=== PATIENT | female | born 1955 | race Caucasian/White ===

== ENCOUNTER 2018-09-04 00:47 | Observation (INO) ==
[2018-09-04] MEDS ORDERED: *HR* Heparin 5,000 UNIT/ML VIAL IVP PRN ×7 (03:07→14:27)
[2018-09-04] MEDS ORDERED: *HR* Morphine 2 MG/ML SYRINGE IVP PRN (03:07)
[2018-09-04] MEDS ORDERED: Acetaminophen 325 MG TABLET PO PRN (03:07)
[2018-09-04] MEDS ORDERED: traMADol 50 MG TABLET PO PRN (03:07)
[2018-09-04] MEDS ORDERED: Naloxone 0.4 MG/ML INJ IVP PRN (03:07)
[2018-09-04] MEDS ORDERED: Nitroglycerin 25 MG/250 ML INFUS..BTL IVC SCH (03:15)
[2018-09-04] MEDS ORDERED: 0.9 % Sodium Chloride 1,000 ML IVC SCH (03:15)
[2018-09-04] MEDS ORDERED: [UNRECOGNIZED DRUG - OTHER] MC SCH (03:30)
--- NOTE | 2018-09-04 04:02 | Internal Med History&Physical ---
Date of Encounter: 09/04/18 Time of Encounter: 03:00 Internal Medicine - H&P: HPI Chief complaint: chest pain Admitted From: Emergency Dept Plans for Post Hospital Care: Home History of present illness: Ms. Dumas is a 62 year old female who presents in transfer from [facility] ER with complaints of chest pain. She presented there with elevated blood pressure, chest pain, and shortness of breath. Her chest pain was 8 out of 10 despite sublingual NTG 2. She was given his morphine and IV nitroglycerin with essential resolution of her chest pain. D-dimer was elevated. Initial troponin and EKG were negative. I was then contacted by [facility] attending requesting transfer to [facility]. There was discussion about possibly proceeding with CT angiogram of the chest to rule out PE. Given her known coronary artery disease, elevated d-dimer, clinical suspicion for PE, and prior history of UT, I recommended empiric treatment with heparin drip and nitroglycerin drip and then transfer to [facility]. Upon arrival to [facility], I saw patient on the floor. She is now chest pain-free. Blood pressure has improved. She is no longer short of breath. She does have known coronary artery disease and last had a PCI and stent about 1 year ago. Pain was a little different than her prior UT. She does have a history of breast cancer and takes tamoxifen, both of which increased my concern for possible thromboembolism. Patient does need imaging for possible PE. However, her kidney function was impaired and decision was made to hold off CT scan imaging at [facility] as we discussed. I am going to gingerly hydrate her and repeat her chemistries here. If her kidney function is stable, we will image with CT angiogram. If not, we will proceed with VQ imaging and BLE Dopplers. Nonetheless, there is a higher than normal clinical index of suspicion of PE given her history of breast cancer and tamoxifen use. She denies any prolonged travel recently. She has never had any blood clot before. Family history is negative for clot. Regarding her cardiac risk factors, she has known coronary artery disease, has been insulin-dependent diabetic for 60 years, and has a family history of heart disease. Therefore, we will continue heparin drip empirically for both coronary disease and possible PE now. She denies any calf pain or tenderness. She denies any lower extremity asymmetrical edema. She denies any fevers, cough, vomiting, or diarrhea. Past Med Surg Social Fam HX - Past Medical History Attestation: Yes The following information was validated with the patient. Source: patient, old records reviewed Medical history: arthritis, cancer (breast), diabetes, hyperlipidemia, hypertension, thyroid disease Additional medical history: charcot foot syndrome Psychiatric history: no psych history - Past Surgical History Surgical History: angioplasty/stent, breast surgery, hysterectomy Additional surgical history: bilateral foot surgery - Social History Smoking Status: Never smoker Smokeless Tobacco Status: No Alcohol use: occasionally Drug use: none Current living situation: Home, With Family Activity Level: Independent ambulation Recent Out of Country Travel Within the Last 8 Weeks: No - Family History Mother Living Status: Hx Family Cardiac Disorders: Yes Father Living Status: Hx Family Cardiac Disorders: Yes Internal Medicine - H&P: Meds Furosemide [Lasix] 40 mg PO DAILY 07/28/16 [History] Gabapentin [Gralise] 600 mg PO TID 07/28/16 [History] Infusion Set-Insulin Pump Body [Snap Insulin Pump-Infusion Set] 1 each MC CONT 07/28/16 [History] LORazepam [Ativan] 0.5 mg PO TID PRN 07/28/16 [History] Losartan [Cozaar] 25 mg PO DAILY 07/28/16 [History] Metoprolol XL (24 HR) Succ [Toprol XL] 25 mg PO DAILY 07/28/16 [History] Ropinirole HCl [Requip] 0.5 mg PO HS 07/28/16 [History] Temazepam [Restoril] 15 mg PO HS 07/28/16 [History] 3 Allergy/AdvReac Type Severity Reaction Status Date / Time sulfamethoxazole AdvReac See Verified 07/28/16 11:38 [From Bactrim] Comments trimethoprim [From Bactrim] AdvReac See Verified 07/28/16 11:38 Comments - Constitutional Constitutional: no chills, no fever(s) - EENT Eyes: no blurry vision, no change in vision Ears: no ear pain, no tinnitus Nose, mouth and throat: no nasal congestion, no sinus pressure, no sore throat - Cardiovascular Cardiovascular ROS IM: chest pain, dyspnea, dyspnea on exertion, palpitations, no lightheadedness, no paroxysmal nocturnal dyspnea, no syncope - Respiratory Respiratory: dyspnea, no cough, no hemoptysis, no chest congestion, no excessive phlegm production, no change in phlegm color - Gastrointestinal Gastrointestinal: no abdominal pain, no diarrhea, no hematemesis, no hematochezia, no melena, no nausea, no vomiting - Genitourinary Genitourinary: no dysuria, no flank pain, no hematuria - Musculoskeletal Musculoskeletal ROS IM: no arthralgias, no back pain - Integumentary Integumentary IM: no rash, no jaundice - Neurological Neurological ROS: no dizziness, no focal weakness, no frequent falls, no headache(s) - Psychiatric Psychiatric: no anxiety, no depression - Endocrine Endocrine IM: no cold intolerance, no heat intolerance, no polydipsia, no polyphagia, no polyuria - Allergic/Immunologic Allergic/Immunologic: no wheezing, no GI upset with certain foods - Constitutional Vitals: Temp Pulse Resp BP Pulse Ox 97.5 F L 71 16 135/86 96 09/04/18 02:42 09/04/18 02:42 09/04/18 02:42 09/04/18 02:42 09/04/18 02:42 General appearance: Present: cooperative, A&O X 3, no acute distress, answers questions appropriately Exam: see below - Head Head exam: Present: atraumatic, normal inspection - Eye Eye exam: Present: EOMI, PERRL. Absent: scleral icterus Pupils: Present: normal accommodation - ENT ENT exam: Present: mucous membranes dry, normal exam, normal oropharynx - Neck Neck exam general surgery: Present: full ROM, supple. Absent: tenderness, nuchal rigidity, thyromegaly - Respiratory Respiratory exam: Present: CTAB. Absent: chest wall tenderness, rales, rhonchi , wheezes - Cardiovascular Cardiovascular exam: Present: RRR, +S1, +S2. Absent: diastolic murmur, systolic murmur - GI/Abdominal GI/Abdominal exam: Present: normal bowel sounds, soft. Absent: hepatomegaly, mass, splenomegaly, tenderness - Extremities Exam Extremities exam: Present: full ROM, normal capillary refill, warm, radial pulses palpable and symmetrical. Absent: calf tenderness, joint swelling, pedal edema, tenderness - Back Exam Back exam: Present: normal inspection. Absent: CVA tenderness (L), CVA tenderness (R) - Neurological Exam Neurological exam: Present: alert, CN II-XII intact, oriented X3, no focal deficits - Psychiatric Psychiatric exam: Present: normal affect, normal mood - Skin Skin exam: Present: dry, intact, warm Internal Med - H&P Results - Labs Labs: I reviewed her labs from [facility] and include the following: WBC 6.9 Hemoglobin 11.1 Hematocrit 33.6 Platelets 227 PT 9.2 INR 0.8 PTT 26.5 D-dimer 814 Sodium 137 Potassium 4.1 Chloride 101 Carbon Dioxide 29 BUN 34 Creatinine 1.24 Glucose 258 - EKG Data -: EKG Interpreted by Myself - EKG Data Prior EKG available for review: no EKG comments: 09/04/18 04:08 NSR; no acute ST-T changes - Diagnostic Studies Chest x-ray Status: image reviewed by me (negative) - Assessment and plan (1) Unstable angina pectoris Current Visit: Yes Status: Acute Assessment and plan: 1. Patient now chest pain free after NTG drip and heparin drip started. 2. Will trend troponins and EKG's. 3. Will order ECHO. 4. Patient received ASA at [facility]. 5. Will check lipid profile. 6. Continue home meds as appropriate once verified. (2) Hypertension Current Visit: Yes Status: Chronic Assessment and plan: 1. Hold home meds while on NTG drip. 2. Resume home meds as appropriate once NTG drip weaned off. Qualifiers: Hypertension type: essential hypertension Qualified Code(s): I10 - Essential (primary) hypertension (3) D-dimer, elevated Current Visit: Yes Status: Acute Assessment and plan: 1. High clinical suspicion for PE. 2. Continue heparin drip. 3. Repeat chemistries this morning -- if renal function normal, proceed with CTA chest. If abnormal, recommend VQ and BLE venous dopplers. (4) IDDM (insulin dependent diabetes mellitus) Current Visit: Yes Status: Chronic Assessment and plan: 1. Patient on insulin pump -- continue with nursing supervision and monitor glucose QAc and QHS. (5) DVT prophylaxis Current Visit: Yes Status: Acute Assessment and plan: 1. Heparin drip as above.
[2018-09-04] MEDS: Heparin 25,000 UNIT/500 ML D5W 25,000 UNIT/500 ML BAG IVC SCH ×2 (04:08→04:13)
[2018-09-04] MEDS ORDERED: Heparin 25,000 UNIT/500 ML D5W 25,000 UNIT/500 ML BAG IVC SCH ×2 (04:15→14:30)
[2018-09-04 04:44] LABS: Basophils % 0.5 %; Eosinophils # 0.5 K/mcL (0.0-0.6); Eosinophils % 6.3 %; Hematocrit 34.9 % (35.3-44.9); Hemoglobin 11.1 g/dL (11.5-15.4); Immature Granulocytes % 0.1 % (0-4); Lymphocytes # 3.6 K/mcL (0.6-4.6); Lymphocytes % 48.9 %; Mean Corpuscular HGB Conc 31.8 g/dL (31.6-35.5); Mean Corpuscular Hemoglobin 29.4 pg (28.0-33.3); Mean Corpuscular Volume 92.3 fL (83.0-100.0); Mean Platelet Volume 10.9 fL (9.4-12.4); Monocytes # 0.6 K/mcL (0.0-1.3); Monocytes % 8.6 %; Neutrophils # 2.7 K/mcL (1.6-8.9); Platelet Count 208 K/mcL (140-400); Red Blood Count 3.78 M/mcL (3.82-4.97); Red Cell Distribution Width 12.8 % (11.5-14.5); Segmented Neutrophils % 35.6 %
[2018-09-04 05:03] LABS: Alanine Aminotransferase 15 Units/L (7-52); Albumin 3.4 g/dL (3.5-5.7); Albumin/Globulin Ratio 1.4 (1.1-2.2); Alkaline Phosphatase 56 Units/L (34-104); Aspartate Amino Transferase 17 Units/L (13-39); BUN/Creatinine Ratio 29 (6-26); Bilirubin,Total 0.3 mg/dL (0.3-1.0); Blood Urea Nitrogen 30 mg/dL (8-23); Calcium 8.9 mg/dL (8.6-10.3); Carbon Dioxide 26 mEq/L (23-29); Chloride 109 mEq/L (98-107); Chol/HDL Ratio 3.5 (0-4.9); Cholesterol 152 mg/dL (< 200); Globulin 2.5 g/dL (2.4-3.5); Glucose 172 mg/dL (70-105); HDL Cholesterol 44 mg/dL (40-59); LDL Cholesterol,Calculated 95 mg/dL (0-99); Magnesium 2.1 mg/dL (1.6-2.6); Osmolality,Calculated 300 (280-300); Sodium 140 mEq/L (136-145); Total Protein 5.9 g/dL (6.4-8.9); Triglycerides 64 mg/dL (< 150); eGFR For Non-African Americans 53 (> 60)
[2018-09-04 05:07] LABS: INR 0.9; Prothrombin Time 9.9 Seconds (9.4-12.1)
[2018-09-04 06:07] LABS: Activated Partial Thrombo Time 182.8 Seconds (26.0-36.0); Heparin anti-factor XA UFH 1.02 IU/mL (0.30-0.70)
[2018-09-04] MEDS ORDERED: Isovue-370 500 ML INFUS..BTL IV ONE (07:39)
--- NOTE | 2018-09-04 09:11 | Event Note ---
Date of Encounter: 09/04/18 Time of Encounter: 09:07 Patient seen and evaluated at beside. Denies chest pain at this moment or shortness of breath. CTA of the chest negative for PE. Dopple US of the lower extr ordered. Will discontinue Heparin drip. Will try weaning patient off the Nitro drip. Due to patient hx of CAD and previous AR, and no recent Ischemic work up, in the setting of a negative CTA for PE WIll consider cardiac stress test, for complete ischemic work up. Continue IV fluids for 24 more hours.
[2018-09-04 11:15] VITALS: BP 178/79
--- NOTE | 2018-09-04 11:49 | Cardiology Consult Note ---
Date of Encounter: 09/04/18 Time of Encounter: 11:47 Assessment and Plan (1) Chest pain Current Visit: No Status: Acute History of multiple cardiac risk factors and recent PCI a year ago with symptoms of chest pain similar to what she had prior to her previous stents. Will obtain records of most recent [facility] an echocardiogram to help with her stratification. Patient currently resting currently denies any chest pain. Continue IV heparin and IV nitroglycerin for pain control Qualifiers: Chest pain type: precordial pain Qualified Code(s): R07.2 - Precordial pain Discussion w patient/family: The assessment and plan as outlined above was discussed with the patient and/or family members who expressed understanding and agreement. All questions were answered. Thank you for involving us in the care of your patient. Please call with any questions. History of Present Illness Consult date: 09/04/18 Consult reason: Chest Pain Chief complaint: Chest pain History of present illness: Ms. Dumas is a 62 year old female with history of coronary artery disease status post-PCI year ago presents to [facility] department complaining of atypical type chest pain. Patient's chest pain currently has resolved on IV nitroglycerin. These symptoms of chest pain were described as similar to her previous episode prior to her most recent stents. EKG nonspecific ST changes were noted. Patient was transferred from [facility] for concerns of possible PE in a CT chest was unremarkable. We will obtain records from most recent PCI and consider possible invasive versus noninvasive risk stratification according to findings. An echocardiogram also obtained to help her stratification Past Med Surg Social Fam HX - Past Medical History Medical history: arthritis, cancer (breast), diabetes, hyperlipidemia, hypertension, thyroid disease Additional medical history: charcot foot syndrome Psychiatric history: no psych history - Past Surgical History Surgical History: angioplasty/stent, breast surgery, hysterectomy Additional surgical history: bilateral foot surgery - Social History Smoking Status: Never smoker Smokeless Tobacco Status: No Alcohol use: occasionally Drug use: none - Family History Mother Living Status: Hx Family Cardiac Disorders: Yes Father Living Status: Hx Family Cardiac Disorders: Yes Medications and Allergies Gabapentin [Gralise] 300 mg PO QAM 07/28/16 [History] Infusion Set-Insulin Pump Body [Snap Insulin Pump-Infusion Set] 1 each MC CONT 07/28/16 [History] LORazepam [Ativan] 0.5 mg PO TID PRN 07/28/16 [History] Ropinirole HCl [Requip] 0.5 mg PO HS 07/28/16 [History] Atorvastatin Calcium [Lipitor] 80 mg PO HS 09/04/18 [History] Bumetanide [Bumex] 0.5 mg PO DAILY 09/04/18 [History] Gabapentin [Neurontin] 600 mg PO HS 09/04/18 [History] Isosorbide MONOnitrate (24 HR) [Imdur] 60 mg PO DAILY 09/04/18 [History] Losartan Potassium [Cozaar] 100 mg PO DAILY 09/04/18 [History] Metoprolol Succinate [Toprol Xl] 100 mg PO DAILY 09/04/18 [History] Nitroglycerin [Nitrostat] 0.4 mg SL AD 09/04/18 [History] Tamoxifen Citrate 20 mg PO DAILY 09/04/18 [History] Ticagrelor [Brilinta] 90 mg PO BID 09/04/18 [History] 3 Allergy/AdvReac Type Severity Reaction Status Date / Time sulfamethoxazole AdvReac See Verified 07/28/16 11:38 [From Bactrim] Comments trimethoprim [From Bactrim] AdvReac See Verified 07/28/16 11:38 Comments All Systems Review: The remainder of the systems were reviewed and are negative Physical Examination Vital Signs, Last 4 Hours Temp Pulse Resp BP Pulse Ox 09/04/18 11:14 98.2 F 74 18 178/79 95 General: Conversant, No Apparent Distress HEENT: Atraumatic, Normocephaly, Mucus Membranes Moist Neck: No JVD, Normal carotid pulses Cardiac: Reg Rate and Rhythm, Normal S1 and S2, No Murmur Lungs: Normal Breath Sounds, No Wheeze, Rales, Rhonchi Neuro: Alert and responsive, No focal deficits noted Abdomen: Soft, Non-Tender Skin: No rashes noted on visualized skin Musculoskeletal: No Chest Wall Tenderness Extremities: No Clubbing, No Cyanosis, No Edema, Normal Pulses Results 09/04/18 03:52 09/04/18 03:52 Lab Results 09/04/18 09/04/18 09/04/18 03:52 03:52 03:52 WBC 7.5 Hgb 11.1 L Hct 34.9 L Plt Count 208 INR 0.9 APTT 182.8 H* D Sodium Potassium Chloride Carbon Dioxide BUN Creatinine Glucose Calcium Magnesium Total Bilirubin AST ALT Alkaline Phosphatase Troponin I < 0.03 09/04/18 09/04/18 03:52 09:47 WBC Hgb Hct Plt Count INR APTT Sodium 140 Potassium 4.0 Chloride 109 H Carbon Dioxide 26 BUN 30 H Creatinine 1.05 Glucose 172 H Calcium 8.9 Magnesium 2.1 Total Bilirubin 0.3 AST 17 ALT 15 Alkaline Phosphatase 56 Troponin I < 0.03 Consult Discharge Plan - Plan Referrals: Mac Mcgraw MD [Primary Care Provider] -
--- NOTE | 2018-09-04 13:33 | Discharge Summary ---
Orders not resulted at time of discharge: Pending orders 09/04/18 03:07 ECG 12 lead ECG [ECG] Routine EV echocardiogram Routine 09/04/18 07:40 Venous Doppler [EV venous imaging LE BI] Routine 09/04/18 09:11 NM shane perf SPECT multi [NM] Routine SP exercise nuclear stress Routine 09/04/18 13:17 Heparin anti-factor XA UFH [COAG] Timed 09/04/18 16:00 Troponin I Q6H 09/05/18 04:00 Basic Metabolic Panel AM 0400 Magnesium AM 0400 Phosphorous AM 0400 Date of Encounter: 09/04/18 Time of Encounter: 13:29 - Discharge Diagnosis (1) Unstable angina pectoris Priority: Primary Status: Acute (2) Hypertension Priority: Secondary Status: Chronic Qualifiers: Hypertension type: essential hypertension Qualified Code(s): I10 - Essential (primary) hypertension (3) D-dimer, elevated Priority: Secondary Status: Acute (4) DVT prophylaxis Priority: Secondary Status: Acute (5) IDDM (insulin dependent diabetes mellitus) Priority: Secondary Status: Chronic Hospital course: Ms. Dumas is a 62 year old female past medical history significant for type 1 diabetes, hypertension, coronary artery disease, breast cancer on tamoxifen and hyperlipidemia. Patient was transferred to this hospital from another facility due to the complaint of chest pain and elevated d-dimer. Patient admitted to the hospital and ischemic workup initiated, troponins negative, patient continue to have chest pain was placed on a nitro and heparin drip. Due to a high probability for pulmonary embolism a CTA of the chest was done which ruled out pulmonary embolism. Patient evaluated by our cottrell operator. Patient recommended to be transferred to a different facility for continuity of care. I have called [facility] and patient will be transferred to that facility. - Time Spent with Patient Total time spent providing and/or coordinating discharge services: Less than 30 minutes - Discharge Medications Home Medications: Gabapentin [Gralise] 300 mg PO QAM 07/28/16 [History] Infusion Set-Insulin Pump Body [Snap Insulin Pump-Infusion Set] 1 each MC CONT 07/28/16 [History] LORazepam [Ativan] 0.5 mg PO TID PRN 07/28/16 [History] Ropinirole HCl [Requip] 0.5 mg PO HS 07/28/16 [History] Atorvastatin Calcium [Lipitor] 80 mg PO HS 09/04/18 [History] Bumetanide [Bumex] 0.5 mg PO DAILY 09/04/18 [History] Gabapentin [Neurontin] 600 mg PO HS 09/04/18 [History] Heparin 3,100 unit IVP Q6H PRN vial 09/04/18 [Rx] Isosorbide MONOnitrate (24 HR) [Imdur] 60 mg PO DAILY 09/04/18 [History] Losartan Potassium [Cozaar] 100 mg PO DAILY 09/04/18 [History] Metoprolol Succinate [Toprol Xl] 100 mg PO DAILY 09/04/18 [History] Nitroglycerin [Nitrostat] 0.4 mg SL AD 09/04/18 [History] Tamoxifen Citrate 20 mg PO DAILY 09/04/18 [History] Ticagrelor [Brilinta] 90 mg PO BID 09/04/18 [History] Allergies/Adverse Reactions: 3 Allergy/AdvReac Type Severity Reaction Status Date / Time sulfamethoxazole AdvReac See Verified 07/28/16 11:38 [From Bactrim] Comments trimethoprim [From Bactrim] AdvReac See Verified 07/28/16 11:38 Comments Date of admission: 09/04/18 01:59 Primary care physician: Mac Mcgraw MD Consults: 09/04/18 03:09 Consult to Physician [CONS] Routine Consulting Provider: Cindy Keene Reason for Consult: chest pain; known CAD; unstable angina Call Completed: No - Constitutional Vitals: Temp Pulse Resp BP Pulse Ox 98.2 F 74 18 178/79 95 09/04/18 11:14 09/04/18 11:14 09/04/18 11:14 09/04/18 11:14 09/04/18 11:14 General appearance: Present: cooperative, A&O X 3, no acute distress, answers questions appropriately Exam: General: Alert and oriented Skin:Normal color, no rash, no lesions. HEENT:EOM, pupils equal, round and reactive. Cardiovascular:Normal S1 & S2, no rubs, murmurs or gallops. No JVD. Pulse regular. Lungs:Normal breath sounds, no wheezes or crackles. Abdomen:Soft, non-tender, no rigidity. Extremities:No deformity, no edema or tenderness, no joint swelling or clubbing. Neurological:Normal cognition and motor skills. Pulses:Carotid and radial pulses normal +2. Rest of the physical exam is non contributory - Patient Status Disposition: Transfer Intermediate Care Fac Condition: Good Functional capacity at discharge: independent ambulation Overall status at discharge: patient is back to baseline - Discharge Instructions Follow Up With: Mac Mcgraw MD [Primary Care Provider] - - Diet and Activity Activity: resume usual activities as tolerated
[2018-09-04] MEDS ORDERED: *HR* Enoxaparin 80 MG/0.8 ML SYRINGE SQ SCH (21:00)
[2018-09-05] MEDS ORDERED: *HR* Enoxaparin 40 MG/0.4 ML SYRINGE SQ SCH (06:00)
--- NOTE | 2018-09-07 10:00 | Electrocardiograph Report ---
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
== END 2018-09-04 16:22 ==
LOC: 2ANU → SUATTDRO 01:59
PROVIDERS: ADMIT Pediatrics; ATTEND Internal Medicine

== ENCOUNTER 2020-02-06 21:34 | Observation (INO) ==
[2020-02-06] MEDS ORDERED: Isovue-370 500 ML BOTTLE IVP ONE (22:27)
[2020-02-06] MEDS ORDERED: Prochlorperazine 10 MG/2 ML VIAL IVP STA (22:28)
[2020-02-06] MEDS ORDERED: 0.9 % Sodium Chloride 1,000 ML IVC ONE (22:29)
[2020-02-07 00:01] LABS: Basophils # 0.1 K/mcL (0.0-0.2); Basophils % 0.7 %; Eosinophils # 0.4 K/mcL (0.0-0.6); Eosinophils % 4.1 %; Hematocrit 35.5 % (35.3-44.9); Hemoglobin 11.5 g/dL (11.5-15.4); Immature Granulocytes % 0.2 % (0-4); Lymphocytes # 2.9 K/mcL (0.6-4.6); Lymphocytes % 32.6 %; Mean Corpuscular HGB Conc 32.4 g/dL (31.6-35.5); Mean Corpuscular Volume 89.6 fL (83.0-100.0); Mean Platelet Volume 10.2 fL (9.4-12.4); Monocytes # 0.9 K/mcL (0.0-1.3); Monocytes % 9.7 %; Neutrophils # 4.7 K/mcL (1.6-8.9); Platelet Count 257 K/mcL (140-400); Red Blood Count 3.96 M/mcL (3.82-4.97); Segmented Neutrophils % 52.7 %; White Blood Count 8.9 K/mcL (4.3-11.1)
[2020-02-07 00:21] LABS: Calcium 9.8 mg/dL (8.6-10.3); Magnesium 2.3 mg/dL (1.6-2.6)
[2020-02-07 00:32] LABS: Troponin I 0.14 ng/mL (< 0.04)
[2020-02-07 00:36] LABS: Bilirubin,Urine Negative (Negative); Blood,Urine Small (Negative); Clarity,Urine Cloudy (Clear); Color,Urine Yellow (Yellow); Glucose,Urine (UA) Normal (Normal); Ketones,Urine Negative (Negative); Leukocyte Esterase,Urine Moderate (Negative); Nitrite,Urine Negative (Negative); PH,Urine 7.5 pH Units (5.0-8.0); Protein,Urine 30 mg/dL (Neg-Trace); Specific Gravity,Urine 1.011 (1.010-1.025); Urobilinogen,Urine Normal (Normal)
[2020-02-07] MEDS ORDERED: *HR* Dextrose 50 % in Water (Syg) 50 ML SYRINGE IVP ONE (00:38)
[2020-02-07 00:40] LABS: Bacteria,Urine Few per hpf (None-Few); Hyaline Casts,Urine None Seen per lpf (None-Few); RBC,Urine 0-3 per hpf (0-3); Squamous Epithelial Cell,Urine Many per lpf (None-Few); WBC,Urine 30-50 per hpf (0-3)
[2020-02-07] MEDS ORDERED: *HR* Dextrose 50 % in Water (Syg) 50 ML SYRINGE ONE (00:41)
[2020-02-07] MEDS ORDERED: *HR* Heparin 5,000 UNIT/ML VIAL IVP ONE (03:01)
[2020-02-07] MEDS ORDERED: *HR* Heparin 5,000 UNIT/ML VIAL IVP PRN (03:01)
[2020-02-07] MEDS ORDERED: cefTRIAXone 1,000 MG in Water for inj. (sterile) 10 ML IVP ONE (03:04)
[2020-02-07] MEDS ORDERED: Heparin 25,000 UNIT/250 ML D5W 25,000 UNIT/250 ML IV.SOLN IVC SCH (03:15)
[2020-02-07] MEDS ORDERED: *HR* HYDROmorphone (PF) 1 MG/ML SYRINGE IVP ONE (03:32)
[2020-02-07] MEDS ORDERED: Naloxone 0.4 MG/ML INJ IVP PRN (04:23)
[2020-02-07] MEDS ORDERED: Acetaminophen 325 MG TABLET PO PRN (04:23)
[2020-02-07] MEDS ORDERED: Ondansetron 4 MG/2 ML VIAL IVP PRN (04:23)
[2020-02-07 04:27] LABS: Heparin anti-factor XA UFH < 0.04 IU/mL (0.30-0.70); INR 0.9; Prothrombin Time 10.1 Seconds (9.4-12.1)
[2020-02-07 04:51] LABS: Hematocrit 34.3 % (35.3-44.9); Hemoglobin 11.1 g/dL (11.5-15.4); Mean Corpuscular HGB Conc 32.4 g/dL (31.6-35.5); Mean Corpuscular Volume 92.7 fL (83.0-100.0); Mean Platelet Volume 10.6 fL (9.4-12.4); Platelet Count 211 K/mcL (140-400); Red Cell Distribution Width 13.1 % (11.5-14.5)
[2020-02-07] MEDS ORDERED: *HR* LORazepam 0.5 MG TABLET PO PRN ×2 (05:13→15:10)
[2020-02-07] MEDS ORDERED: Nitroglycerin 0.4 MG TAB.SUBL SL PRN (05:15)
[2020-02-07] MEDS ORDERED: Dextrose Gel 15 GM/37.5 ML TUBE PO PRN ×2 (05:16)
[2020-02-07] MEDS ORDERED: *HR* Dextrose 50 % in Water (Syg) 50 ML SYRINGE IVP PRN (05:16)
[2020-02-07] MEDS ORDERED: D5% in Water 1,000 ML IVC PRN (05:16)
[2020-02-07] MEDS: Metoprolol XL (24 HR) Succ 50 MG TAB.ER.24H PO SCH (08:22)
[2020-02-07] MEDS: Gabapentin 300 MG CAPSULE PO SCH ×2 (08:22→20:59)
[2020-02-07] MEDS: Bumetanide 1 MG TABLET PO SCH (08:23)
[2020-02-07] MEDS: Insulin LISPRO 300 UNITS/3 ML VIAL SQ SCH ×4 (08:23→21:02)
[2020-02-07] MEDS: Isosorbide MONOnitrate (24 HR) 60 MG TAB.ER.24H PO SCH (08:24)
[2020-02-07] MEDS ORDERED: *HR* Ticagrelor 90 MG TABLET PO SCH (09:00)
[2020-02-07] MEDS: Insulin DETEMIR 100 UNIT/ML X5UNITS SQ SCH ×2 (09:43→21:02)
[2020-02-07] MEDS: Aspirin Enteric Coated 81 MG Tablet PO SCH (09:44)
[2020-02-07] MEDS: *HR* HYDROmorphone (PF) 1 MG/ML SYRINGE IVP PRN ×2 (09:48→20:54)
[2020-02-07] MEDS ORDERED: Gadolinium Contrast Agent (WT Based) IV PRN (16:39)
[2020-02-07] MEDS: *HR* Heparin 5,000 UNIT/ML VIAL SQ SCH (17:26)
[2020-02-07] MEDS ORDERED: *HR* Ticagrelor 90 MG TABLET PO ONE (21:00)
[2020-02-07] MEDS ORDERED: rOPINIRole 0.25 MG TABLET PO SCH (21:00)
[2020-02-08 04:17] LABS: Estimated Average Glucose 240 mg/dl
[2020-02-08] MEDS ORDERED: Insulin LISPRO 300 UNITS/3 ML VIAL SQ ONE (05:43)
[2020-02-08] MEDS ORDERED: Insulin DETEMIR 100 UNIT/ML X5UNITS SQ ONE (05:44)
[2020-02-08] MEDS: *HR* Heparin 5,000 UNIT/ML VIAL SQ SCH ×2 (06:03→17:15)
[2020-02-08] MEDS: Gabapentin 300 MG CAPSULE PO SCH ×2 (08:18→20:15)
[2020-02-08] MEDS: Aspirin Enteric Coated 81 MG Tablet PO SCH (08:18)
[2020-02-08] MEDS: Isosorbide MONOnitrate (24 HR) 60 MG TAB.ER.24H PO SCH (08:19)
[2020-02-08] MEDS: cefTRIAXone 1,000 MG in Water for inj. (sterile) 10 ML IVP SCH (08:20)
[2020-02-08] MEDS: Bumetanide 1 MG TABLET PO SCH (08:21)
[2020-02-08] MEDS: Insulin LISPRO 300 UNITS/3 ML VIAL SQ SCH ×4 (08:22→20:16)
[2020-02-08] MEDS: Metoprolol XL (24 HR) Succ 50 MG TAB.ER.24H PO SCH (08:23)
[2020-02-08] MEDS: Insulin DETEMIR 100 UNIT/ML X5UNITS SQ SCH ×2 (08:23→20:16)
[2020-02-08 12:07] LABS: Albumin 3.4 g/dL (3.5-5.7); Albumin/Globulin Ratio 1.4 (1.1-2.2); Bilirubin,Indirect 0.2 mg/dL (0.0-1.0); Bilirubin,Total 0.2 mg/dL (0.3-1.0); Globulin 2.5 g/dL (2.4-3.5); Total Protein 5.9 g/dL (6.4-8.9)
[2020-02-08 15:41] LABS: Folate 15.3 ng/mL (3.0-16.0)
[2020-02-09] MEDS: *HR* Heparin 5,000 UNIT/ML VIAL SQ SCH (05:38)
[2020-02-09 07:45] VITALS: BP 165/75
[2020-02-09] MEDS: Insulin LISPRO 300 UNITS/3 ML VIAL SQ SCH ×2 (08:15→12:27)
[2020-02-09] MEDS: Isosorbide MONOnitrate (24 HR) 60 MG TAB.ER.24H PO SCH (08:16)
[2020-02-09] MEDS: cefTRIAXone 1,000 MG in Water for inj. (sterile) 10 ML IVP SCH (08:16)
[2020-02-09] MEDS: Insulin DETEMIR 100 UNIT/ML X5UNITS SQ SCH (08:16)
[2020-02-09] MEDS: Bumetanide 1 MG TABLET PO SCH (08:16)
[2020-02-09] MEDS: Gabapentin 300 MG CAPSULE PO SCH (08:16)
[2020-02-09] MEDS: Metoprolol XL (24 HR) Succ 50 MG TAB.ER.24H PO SCH (08:16)
[2020-02-09] MEDS: Aspirin Enteric Coated 81 MG Tablet PO SCH (08:16)
[2020-02-10] MEDS ORDERED: Amoxicillin 500 MG CAPSULE PO SCH (09:00)
== END 2020-02-09 14:15 | disposition home or self-care (01) ==
LOC: EMEROOARM 21:34 → 2NENU 21:34 → SUATTDRO 02-07 03:55 → 2NENU 02-07 04:29
PROVIDERS: ADMIT Pharmacist; ATTEND Internal Medicine